=== PATIENT | female | born 1965 | race Caucasian/White ===

== ENCOUNTER 2017-10-27 20:41 | Emergency (ER) | payer OTHER ==
[~2017-10-27] VITALS: Ht 180.3 cm; Wt 72.6 kg
[2017-10-27] MEDS ORDERED: HYDROXYZINE PAM25 MG PO (21:08)
[2017-10-28] MEDS ORDERED: CEPHALEXIN500 MG PO (00:16)
[2017-10-28] MEDS ORDERED: NORCO 5-325 TA1 EACH PO (00:16)
[2017-10-28] MEDS ORDERED: ZOFRAN ODT4 MG PO (00:16)
== END 2017-10-28 00:38 | disposition home or self-care (01) ==
LOC: ED 20:41
DX: N39.0 Urinary tract infection, site not specified (principal)
CPT/HCPCS: 80053; 81001; 83690; 85025; 96361; 96374; 96375; 96376; 99284; J0696; J2405; J7030

== ENCOUNTER 2018-02-23 12:01 | Emergency (ER) | payer OTHER ==
[~2018-02-23] VITALS: Ht 180.3 cm; Wt 72.6 kg
[~2018-02-23 12:01] MED LIST: CEPHALEXIN500 MG PO; HYDROXYZINE PAM25 MG PO; MACROBID 100 M100 MG PO; NORCO 5-325 TA1 EACH PO; ZOFRAN ODT4 MG PO
[2018-02-23] MEDS ORDERED: NITROFURANTOIN100 M1 PO (12:43)
[2018-02-23] MEDS ORDERED: HYDROXYZINE PAM25 MG PO (12:43)
[2018-02-23] MEDS ORDERED: DIAZEPAM5 MG PO (12:43)
[2018-02-23] MEDS ORDERED: LACTULOSE10 GM/15 M PO (14:50)
[2018-02-23] MEDS ORDERED: NAPROSYN500 MG PO (14:50)
== END 2018-02-23 15:00 | disposition home or self-care (01) ==
LOC: ED 12:01
DX: R10.9 Unspecified abdominal pain (principal); F43.10 Post-traumatic stress disorder, unspecified; Z79.899 Other long term (current) drug therapy
CPT/HCPCS: 74176; 80053; 81001; 83690; 85025; 87088; 96361; 96374; 99284-25; J2405; J7030

== ENCOUNTER 2018-08-14 22:54 | Emergency (ER) | payer OTHER ==
[~2018-08-14] VITALS: Ht 180.3 cm; Wt 72.6 kg
[~2018-08-14 22:54] MED LIST changes: +DIAZEPAM5 MG PO; +LACTULOSE10 GM/15 M PO; +NAPROSYN500 MG PO; +NITROFURANTOIN100 M1 PO
--- OUTSIDE RECORDS SUMMARY | 2018-08-14 22:56 | XMS ---
PreManage Notification: KATIE ROMANO Security Materials Planning Analyst Events No recent Security Events currently on file CRITERIA MET - 6 ED Visits in 6 Months CARE PROVIDERS MISSAEL CLEARY Family Medicine 05/30/2016-Current PHONE: Unknown MISSAEL CLEARY Primary Care 05/30/2016-Current PHONE: [phone] Rajesh has no Care Guidelines for this patient. [place] VISIT COUNT ([address] [facility] [place] [facility] TOTAL 12 NOTE: Visits indicate total known visits. ED/UCC VISIT TRACKING (12 MO.) 08/14/2018 22:55 [facility] [place] TYPE: Emergency COMPLAINT: - ABNORMAL [facility]AGINAL [facility]LEEDING [facility] DIAGNOSES: 64833. SERIES, MEDS 04/18/2018 13:[facility] DIAGNOSES: 20709. SERIES MEDS 04/17/2018 13:17 [facility] [place] TYPE: Emergency DIAGNOSES: 01695. SERIES MEDS 04/13/2018 12:41 [facility] [place] TYPE: Emergency DIAGNOSES: 95023. SERIES MEDS 04/12/2018 12:44 [facility] [place] [place] TYPE: Emergency DIAGNOSES: 38856. SERIES MEDS 04/11/2018 12:53 [facility] [place] TYPE: Emergency DIAGNOSES: 73415. Series med 04/10/2018 11:[facility] DIAGNOSES: 27173. Urinary tract infection, site not specified 02/23/2018 12:03 [facility] [place] TYPE: Emergency COMPLAINT: - FLANK PAIN/URINE PROBLEM DIAGNOSES: - Post-traumatic stress disorder, unspecified - Unspecified abdominal pain - Other long term care administrator (current) drug therapy 12/11/2017 14:53 [facility] [place] TYPE: Emergency COMPLAINT: - POSS UTI DIAGNOSES: - Frequency of micturition - Urinary tract infection, site not specified 11/15/2017 02:18 [place] [facility] [place] TYPE: Emergency DIAGNOSES: - Difficulty Urinating - Dysuria - Lower abdominal pain, unspecified - UTI Complaints - Constipation, unspecified 10/27/2017 20:[address] [facility] [place] TYPE: Emergency COMPLAINT: - L FLANK PAIN DIAGNOSES: - Urinary tract infection, site not specified - Generalized abdominal pain INPATIENT VISIT TRACKING (12 MO.) No inpatient visits to display in this time frame [email or web address]
[2018-08-15] MEDS ORDERED: NORCO 5-325 TA1 EACH PO (01:33)
== END 2018-08-15 01:54 | disposition home or self-care (01) ==
LOC: ED 22:54
DX: R10.2 Pelvic and perineal pain (principal)
CPT/HCPCS: 80053; 81001; 84703; 85025; 87491; 87591; 99284

== ENCOUNTER 2021-02-20 10:58 | Emergency (ER) | payer OTHER ==
[~2021-02-20] VITALS: Ht 180.3 cm; Wt 70.3 kg
== END 2021-02-20 13:52 | disposition home or self-care (01) ==
LOC: ED 10:58
DX: U07.1 COVID-19 (principal); F43.10 Post-traumatic stress disorder, unspecified; Z88.8 Allergy status to other drugs, medicaments and biological substances; Z88.2 Allergy status to sulfonamides; Z79.899 Other long term (current) drug therapy
CPT/HCPCS: 80053; 81001; 83735; 84703; 85025; 99284; C9803; U0003